=== PATIENT | male | born 1980 | race Caucasian/White ===

== ENCOUNTER → 2016-12-05 19:10 | Emergency (ER) | payer OTHER ==
[~2016-12-05 19:10] MED LIST: ALEVE220 M1 PO; AMOXIL500 M1 PO; BENADRYL PO; DAZIDOX10 MG PO; FLEXERIL10 MG PO; HYDROCOD-HOMAT 55 ML PO; KEFLEX500 MG PO; KLONOPIN0.5 MG PO; KLONOPIN1 MG PO; LORTAB 10-5001 EACH PO; LORTAB 7.5-5001 TAB PO; MOTRIN600 MG PO; NAPROXEN500 M1 PO; OXYCODONE HCL10 MG PO; OXYCODONE15 MG PO; PEN-VEE K PO; TUSSIONEX PENN480 ML PO; VICODIN 5/1 TAB 5/50 PO
== END | disposition left against medical advice (07) ==
LOC: CED 20:05
DX: Z53.21 Procedure and treatment not carried out due to patient leaving prior to being seen by health care provider (principal)